=== PATIENT | male | born 1975 | race Caucasian/White ===

== ENCOUNTER 2017-07-07 16:32 | Emergency (ER) | payer MEDICARE, MEDICAID ==
--- NOTE | 2017-07-07 18:09 | RAD ---
LEFT KNEE FOUR VIEWS: History: Fall. Comparison: None. FINDINGS: No displaced fracture, malalignment. No significant joint effusion. Small medial compartment osteophytes. IMPRESSION: No acute abnormality. POS: [facility]
--- NOTE | 2017-07-07 18:15 | RAD ---
RIGHT KNEE FOUR VIEWS: History: Fall down 7-8 stairs. Comparison: None. FINDINGS: There is a moderate sized layering joint effusion. No displaced fracture is appreciated. No avulsion. IMPRESSION: Moderate sized layering effusion without displaced fracture. Internal derangement is suggested versus a trabecular micro impaction fracture. Follow up MRI would be beneficial if clinically warranted. POS: [facility]
[2017-07-07] MEDS ORDERED: Bacitracin Zinc 1 Packet ONE (19:03)
== END 2017-07-07 19:47 | disposition home or self-care (01) ==
LOC: ERS 16:32
DX: S80.212A Abrasion, left knee, initial encounter (principal); S80.211A Abrasion, right knee, initial encounter; F31.9 Bipolar disorder, unspecified; F20.9 Schizophrenia, unspecified; W10.9XXA Fall (on) (from) unspecified stairs and steps, initial encounter

== ENCOUNTER 2017-07-31 14:05 | Outpatient (CLI) | payer MEDICARE, MEDICAID ==
--- NOTE | 2017-07-31 15:55 | MRI ---
MRI RIGHT KNEE WITHOUT CONTRAST: Date: 07/31/17 HISTORY: Knee pain, M25.561. COMPARISON: Knee radiograph dated 07/07/17. FINDINGS: Medial Meniscus: Intact. Lateral Meniscus: Intact. ACL, PCL, MCL, and LCL are all intact. Extensor Mechanism: Quadriceps tendon and patellar tendon are intact. There is a nondisplaced subchondral fracture of the medial patellar facet. Cartilage: Patellofemoral compartment: There is some mild chondral fraying, as well as deep fissures to the lat eral patellar facets extending to the patellar apex at the level of the mid patella. Medial compartment: Intact. Lateral compartment: Intact. The posterior flexion zones are intact. Soft Tissues: Mild prepatellar soft tissue edema, as well as fluid within the prepatellar bursa. There is an area of susceptibility along lateral retinaculum of patella. Small popliteal cyst is present, likely leaking. IMPRESSION: 1. Trabecular impaction fracture of the medial patellar facet which does extend to the articular kenn face. No displacement. 2. 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 3. Area of susceptibility along lateral patellar retinaculum, may be a small foreign body. 4. Prepatellar soft tissue edema consistent with contusion. POS: [facility]
== END 2017-07-31 14:06 | disposition home or self-care (01) ==
LOC: MRI 14:05
PROVIDERS: ATTEND Orthopaedic Surgery
DX: M25.561 Pain in right knee (principal); S82.001A Unspecified fracture of right patella, initial encounter for closed fracture; M22.41 Chondromalacia patellae, right knee; R60.0 Localized edema